=== PATIENT | male | born 1955 ===

== ENCOUNTER 2016-09-08 12:56 | Emergency (ER) | payer BC ==
[2016-09-08 13:24] VITALS: BP 126/56
[2016-09-08] MEDS ORDERED: Lidocaine 1%* 5 ML VIAL ONE (13:31)
--- NOTE | 2016-09-08 14:09 | UC ---
Laceration HPI - HPI Summary HPI Summary: This is a 60 yo gentleman who was skiing earlier today who slipped on the ice and his pole went in to his lip. He did not strike his head or fall. No LOC. No dental injury. - History Of Current Complaint Chief Complaint: UCLaceration Stated Complaint: LIP LACERATION - Allergies/Home Medications Allergies/Adverse Reactions: Allergies Allergy/AdvReac Type Severity Reaction Status Date / Time Bacitracin [From Neosporin] Allergy Intermediate local Verified 09/08/16 13:18 swelling and redness Neomycin [From Neosporin] Allergy Intermediate local Verified 09/08/16 13:18 swelling and redness Polymyxin B [From Neosporin] Allergy Intermediate local Verified 09/08/16 13:18 swelling and redness Home Medications: Home Medications NK [No Home Medications Reported] 09/08/16 [History Confirmed 09/08/16] PMH/Surg Hx/FS Hx/Imm Hx Cardiovascular History Of: Reports: Cardiac Disorders - Intermittently Irregular - Surgical History Surgical History: None - Family History Known Family History: Positive: None - Social History Alcohol Use: Occasionally Substance Use Type: None Smoking Status (MU): Never Smoked Tobacco - Immunization History Most Recent Tetanus Shot: ~2009 Review of Systems Constitutional: Negative Skin: Negative Eyes: Negative ENT: Negative Respiratory: Negative Cardiovascular: Negative Gastrointestinal: Negative Genitourinary: Negative Motor: Negative Neurovascular: Negative Musculoskeletal: Negative Neurological: Negative Psychological: Negative All Other Systems Reviewed And Are Negative: Yes Physical Exam Triage Information Reviewed: Yes Appearance: Well-Appearing Vital Signs: Initial Vital Signs Temp 98.3 F 09/08/16 13:15 Pulse 72 09/08/16 13:15 Resp 16 09/08/16 13:15 BP 126/56 09/08/16 13:15 Pulse Ox 100 09/08/16 13:15 Vital Signs Reviewed: Yes Dental Exam: Normal Respiratory: Positive: Lungs clear Cardiovascular: Positive: RRR, No Murmur Skin Exam: Other - laceraction ~1.5 cm in length and full thickness over the lower lip that does not cross the cel[place] border Laceration Repair - Laceration Repair 1 Description: Linear Laceration Size After Repair: Length (cm) - 1.5 Contamination/FB Removal: No FB, flushed with sterile saline Debridement: None Modified For Repair: No Type Injection: Local Anesthesia Used: 1.0% Lido Cleansing Completed Via Routine Prep: Yes Irrigation With Pressure Irrigation Device: Yes Closure Material: Sutures Closure Method: Single Layer Suture Of: Skin Suture Type: Vicryl - 6.0 Laceration Course/Dx - Course/Dx Course Of Treatment: Uncomplicated laceration of the lower lip in an otherwise healthy male. 2 simple sutures placed. Recommend removing sutures in 5-7 days. - Differential Dx - Laceration/Wound Differental Diagnoses: Avulsion, Laceration Provider Diagnoses: Lower lip laceration Discharge - Discharge Plan Condition: Stable Disposition: HOME Patient Education Materials: Facial Laceration (ED) Referrals: Viet Angel MD [Primary Care Provider] - Additional Instructions: Activity: No restrictions Instructions: 1. Your stitches should be ready to come out in ~5 days. Please come here or to your PCP to have them removed 2. Monitor for signs of infection
== END 2016-09-08 14:23 | disposition home or self-care (01) ==
LOC: UCCORT 12:56
DX: S01.511A Laceration without foreign body of lip, initial encounter (principal); V00.321A Fall from snow-skis, initial encounter; Y93.23 Activity, snow (alpine) (downhill) skiing, snowboarding, sledding, tobogganing and snow tubing; Y92.9 Unspecified place or not applicable
CPT/HCPCS: 12011; 99211; G0463